=== PATIENT | female | born 1975 | race Caucasian/White ===

== ENCOUNTER 2018-01-13 23:57 | Emergency (ER) | payer BC ==
[~2018-01-13] VITALS: Ht 154.9 cm; Wt 81.6 kg
[~2018-01-13 23:57] MED LIST: CALCIUM; IRON; LEVO137T20 PO
[2018-01-14 00:24] VITALS: BP_SYST 150
[2018-01-14] MEDS ORDERED: LORazepam 2 MG/ML VIAL (FOR ER USE) IM ONE (01:15)
[2018-01-14 01:53] LABS: CALCIUM 8.4 mg/dL (8.4-11.0); CREATININE 0.65 mg/dL (0.55-1.30); POTASSIUM 3.3 mmol/L (3.5-5.1)
[2018-01-14 01:59] LABS: ALBUMIN 3.3 g/dL (3.4-4.8); TOTAL BILIRUBIN 0.3 mg/dL (0.0-1.0)
[2018-01-14 02:31] VITALS: BP_SYST 126
== END 2018-01-14 02:31 | disposition home or self-care (01) ==
LOC: SED 23:57
DX: F41.9 Anxiety disorder, unspecified (principal); E83.51 Hypocalcemia; Z85.850 Personal history of malignant neoplasm of thyroid
CPT/HCPCS: 36415; 80053; 96372; 99283; J2060

== ENCOUNTER 2022-07-16 18:48 | Emergency (ER) | payer BC ==
[~2022-07-16] VITALS: Ht 154.9 cm; Wt 70.3 kg
[2022-07-16 18:50] VITALS: BP_SYST 108
--- NOTE | 2022-07-16 20:17 | NUR ---
DR. COLEMAN IN TRIAGE FOR MSE
--- NOTE | 2022-07-16 20:30 | NUR ---
PT WALKED IN C/O RIGHT ARM PAIN XTODAY. DENIES FALL/ TRAUMA. +WORSE WITH MOVEMENT. DENIES NUMBNESS, TINGLING, CP, SOB .
[2022-07-16 21:10] VITALS: BP_SYST 108
[2022-07-16] MEDS ORDERED: NAPR-1172 PO (21:10)
--- NOTE | 2022-07-16 21:10 | NUR ---
Patient given written and verbal discharge instructions and verbalizes understanding. ER MD discussed with patient the results and treatment provided. Patient in stable condition. ID arm band removed. Rx of NAPROSYN given. Patient educated on pain management and to follow up with PMD. Pain Scale 3/10. Opportunity for questions provided and answered. Medication side effect fact sheet provided.
--- NOTE | 2022-07-16 21:17 | NUR ---
Note undone in EDM - 07/16/22 at 2118 by ROSSEDPR Patient given written and verbal discharge instructions by Dr Galarza and verbalizes understanding. ER discussed with patient the results and treatment provided. Patient in stable condition. ID arm band removed. Rx of Naproxen given. Patient educated on pain management and to follow up with PMD. Pain Scale 4/10. Opportunity for questions provided and answered. Medication side effect fact sheet provided.
== END 2022-07-16 21:10 | disposition home or self-care (01) ==
LOC: SED 18:48
DX: S43.401A Unspecified sprain of right shoulder joint, initial encounter (principal); Z79.899 Other long term (current) drug therapy; X58.XXXA Exposure to other specified factors, initial encounter; Y93.89 Activity, other specified; Y92.89 Other specified places as the place of occurrence of the external cause; Y99.8 Other external cause status
CPT/HCPCS: 71045; 73030; 73090; 93005; 99284

== ENCOUNTER 2022-10-07 09:38 | Emergency (ER) | payer BC ==
[~2022-10-07] VITALS: Ht 154.9 cm; Wt 70.3 kg
[~2022-10-07 09:38] MED LIST changes: +NAPR-1172 PO
[2022-10-07 09:40] VITALS: BP_SYST 112
[2022-10-07] MEDS ORDERED: KETOROLAC TROMETHAMINE 60 MG/2 ML VIAL IM ONE (10:15)
[2022-10-07] MEDS ORDERED: HYDROcodone/ACETAMIN 10-325 MG TAB PO ONE (10:15)
[2022-10-07 10:35] LABS: BASOPHILS # (AUTO) 0.1 K/uL (0.0-0.2); BASOPHILS % (AUTO) 0.6 % (0.0-2.0); EOSINOPHILS # (AUTO) 0.1 K/uL (0.0-0.4); EOSINOPHILS % (AUTO) 1.1 % (0.0-4.0); HEMATOCRIT 38.4 % (36-48); LYMPHOCYTES # (AUTO) 1.3 K/uL (1.0-5.5); MEAN CORPUSCULAR HEMOGLOBIN 29 pg (27-31); MEAN CORPUSCULAR HGB CONC 34 % (32-36); MEAN CORPUSCULAR VOLUME 86 fL (79.0-98.0); MONOCYTES # (AUTO) 0.5 K/uL (0.0-1.0); NEUTROPHILS # (AUTO) 7.1 K/uL (1.8-7.7); NEUTROPHILS % (AUTO) 78.3 % (40.0-70.0); PLATELET COUNT (AUTO) 160 K/uL (130-430); RED BLOOD CELL COUNT(AUTO) 4.48 MIL/uL (4.2-6.2); RED CELL DISTRIBUTION WIDTH 15.9 % (9.0-15.0); WHITE BLOOD COUNT (AUTO) 9.1 K/uL (4.8-10.8)
[2022-10-07 10:51] LABS: ANION GAP 8 (5-15); CALCIUM 7.1 mg/dL (8.4-11.0); CHLORIDE 103 mmol/L (98-107); CREATININE 0.79 mg/dL (0.55-1.30); GLUCOSE 99 mg/dL (70-99); UREA NITROGEN, BLOOD 15 mg/dL (8-21)
[2022-10-07 10:55] LABS: ALANINE AMINOTRANSFERASE 36 U/L (12-78); ALBUMIN 3.4 g/dL (3.4-4.8); AMYLASE 56 U/L (0-100); ASPARTATE AMINOTRANSFERASE 31 U/L (10-37); LACTATE DEHYDROGENASE 143 U/L (81-234); LIPASE 151 U/L (73-393); TOTAL BILIRUBIN 0.3 mg/dL (0.0-1.0)
[2022-10-07 10:57] LABS: C-REACTIVE PROTEIN QUANT < 0.2 mg/dL (0-0.5); GFR AFRICAN AMERICAN 99 mL/min (>90)
[2022-10-07 11:18] LABS: ACETONE, SERUM NEGATIVE (NEGATIVE)
[2022-10-07 11:30] LABS: BILIRUBIN,URINE 1+ (NEGATIVE); BLOOD, URINE 3+ (NEGATIVE); GLUCOSE,URINE TRACE (NEGATIVE); KETONES,URINE TRACE (NEGATIVE); LEUKOCYTE ESTERASE ,URINE 3+ (NEGATIVE); NITRITE, URINE POSITIVE (NEGATIVE); PH,URINE 5.5 (5.0-8.0); PROTEIN URINE 2+ (NEGATIVE)
[2022-10-07 11:55] LABS: CLARITY/URINE HAZY (CLEAR); COLOR,URINE AMBER (YELLOW); UROBILINOGEN,URINE >=8 (0.2-1.0)
[2022-10-07 12:16] LABS: BACTERIA,URINE RARE /HPF (None Seen); RBC,URINE 20-50 /HPF (0-3); WBC,URINE 20-50 /HPF (0-3)
[2022-10-07] MEDS ORDERED: IBUP-1969 PO (13:17)
[2022-10-07] MEDS ORDERED: NITR-85 PO (13:17)
[2022-10-07] MEDS ORDERED: cefTRIAXone 1 GM in LIDOCAINE 1%, 20 ML MDV 2.1 ML IM ONE (13:30)
[2022-10-07 13:43] VITALS: BP_SYST 96
== END 2022-10-07 13:43 | disposition home or self-care (01) ==
LOC: SED 09:38
DX: N39.0 Urinary tract infection, site not specified (principal); Z79.899 Other long term (current) drug therapy
CPT/HCPCS: 99284; 74176; 80053; 81000; 82009; 82150; 84703; 83615; 83690; 85025; 86140; 87086; 36415; 76376; 81025; 96372; 83605; J0696; J1885; J2001